=== PATIENT | female | born 1955 | race Caucasian/White ===

== ENCOUNTER 2023-10-12 19:43 | Emergency (ER) | payer MEDICARE, OTHER, SELFPAY ==
[2023-10-12 20:13] VITALS: BP 199/96; PULSE 50; RESP 16; TEMP 36.4; O2SAT 96; BMI 39.5
--- NOTE | 2023-10-12 20:26 | CRLHL7_ITS ---
For Patients: As a result of the Century Cures Act, medical imaging exams and procedure reports are released immediately into your electronic medical record. You may view this report before your referring provider. If you have questions, please contact your health care provider. INDICATION: Fall, syncope. TECHNIQUE: Noncontrast CT cervical spine. FINDINGS: No acute cervical spine fracture or dislocation. Moderate lower cervical spondylosis. No high-grade canal stenosis. Scattered foraminal narrowing. Right C2 and C3 facets are fused. Paravertebral soft tissues are unremarkable. IMPRESSION: No acute cervical spine findings. Please note that all CT scans at this facility use dose modulation, iterative reconstruction, and/or weight-based dosing when appropriate to reduce radiation dose to as low as reasonably achievable. Dictated by Mal Parada MD @ 10/12/2023 10:18:02 PM (Electronically Signed)
--- NOTE | 2023-10-12 20:26 | CRLHL7_ITS ---
For Patients: As a result of the Century Cures Act, medical imaging exams and procedure reports are released immediately into your electronic medical record. You may view this report before your referring provider. If you have questions, please contact your health care provider. INDICATION: Fall, hit back of head, syncope TECHNIQUE: CT head without contrast. COMPARISON: None. FINDINGS: CSF spaces: Within normal limits for age. Brain parenchyma and extra-axial spaces: The hanson-white differentiation is normal. No sign of mass, hemorrhage, or midline shift. No extra-axial fluid collection. Skull base and calvarium: Large posterior scalp hematoma. Fluid and high density material in the right maxillary sinus is likely due to sinusitis. No fractures are seen. IMPRESSION: No acute intracranial findings. Right maxillary sinus fluid is likely inflammatory, however if there has been a right facial injury would be difficult to exclude a fracture. There is no fracture visible on the study. Please note that all CT scans at this facility use dose modulation, iterative reconstruction, and/or weight-based dosing when appropriate to reduce radiation dose to as low as reasonably achievable. Dictated by Mal Parada MD @ 10/12/2023 9:23:18 PM (Electronically Signed)
--- NOTE | 2023-10-12 20:29 | ED.FALL ---
HPI - Fall General Chief Complaint: Fall/Minor Trauma Stated Complaint: fall Time Seen by Provider: 10/12/23 20:19 History of Present Illness HPI Narrative: Patient is a 67-year-old woman who just flew in from [facility]. She is visiting her family for Thanksgiving. Patient states she has been falling at home and local evaluation has been unremarkable. Tonight after getting off the plane they drove the [place] where the patient stumbled getting out of the car hitting the back of her head. She is able to get up on her own but was brought to the emergency room where after suffering what appears to be an abrasion on the occiput. Patient had no loss of consciousness no palpitations no fevers no chills no night sweats. Patient states she knew feels fine would like to go home. She believes she is up-to-date on her tetanus shot. Her pain is minimal. She has no further neurologic symptoms. EKG upon arrival on my review shows sinus rhythm with PACs no other acute abnormalities. Related Data Home Medications Medication Instructions Recorded Confirmed aspirin 81 mg capsule 81 mg PO DAILY 10/12/23 10/12/23 dulaglutide 3 mg/0.5 mL 3 mg subcut QWEEK 10/12/23 10/12/23 subcutaneous pen injector (Trulicity) empagliflozin 10 mg tablet 10 mg PO DAILY 10/12/23 10/12/23 (Jardiance) insulin glargine 100 unit/mL (3 20 unit subcut DAILY 10/12/23 10/12/23 mL) subcutaneous pen (Lantus Solostar U-100 Insulin) losartan 50 mg tablet (Cozaar) 50 mg PO DAILY 10/12/23 10/12/23 metformin 1,000 mg tablet,extended 1,000 mg PO BID 10/12/23 10/12/23 release 24hr Allergies Allergy/AdvReac Type Severity Reaction Status Date / Time No Known Drug Allergies Allergy Verified 10/12/23 20:13 Review of Systems Status of ROS: Reports: 10 or more systems reviewed and unremarkable except as noted in History and below [facility] Social History Smoking Status: Former smoker What tobacco products do you use: cigarettes Smoking quit date/years: <= 15 years ago How often do you have a drink containing alcohol: monthly or less AUDIT-C Alcohol total score: 1 Non-prescribed substance use: denies use Exam Narrative: Exam Narrative: EXAM GENERAL: Patient appears comfortable and well. EYES: No scleral icterus. ENT: Tympanic membranes and oropharynx normal. THYROID: no thyroid nodules or thyromegaly. LYMPH: No supraclavicular or cervical lymphadenopathy. SKIN: Small abrasion on the occiput to no obvious need for closure. Hemostasis has been achieved. EXT: No dependent lower extremity pedal edema. HEART: Regular rate and rhythm with no murmurs, rubs, or gallops. LUNGS: Clear to auscultation bilaterally with no crackles or wheezes. ABD: Soft, non tender, non distended. PSYCH: Good eye contact, speech is not pressured. Neurologic exam: Cranial nerves 2-12 grossly intact no focal defects. Const: Vital Signs, click to edit/add: Vital Signs - 24 hr 10/12/23 20:13 10/12/23 21:59 Temperature 97.6 F Pulse Rate [Right Pulse Oximeter] 50 L Respiratory Rate 16 Blood Pressure [Ri ght Upper Arm] 199/96 H 178/78 H Pulse Oximetry 96 Oxygen Delivery Me thod Room Air Course Course ED Course: Patient seen examined. CT head neck CBC ETOH basic metabolic panel UA pending. Vital Signs Vital signs: Initial Vital Signs Temperature 97.6 F 10/12/23 20:13 Temperature Source Temporal Artery Scan 10/12/23 20:13 Pulse Rate 50 L 10/12/23 20:13 Pulse Rhythm Regular 10/12/23 20:13 Respiratory Rate 16 10/12/23 20:13 Blood Pressure 199/96 H 10/12/23 20:13 Blood Pressure Mean 130 H 10/12/23 20:13 Blood Pressure Position Sitting 10/12/23 20:13 Pulse Oximetry 96 10/12/23 20:13 Oxygen Delivery Method Room Air 10/12/23 20:13 Vital Signs Temperature 97.6 F 10/12/23 20:13 Pulse Rate 50 L 10/12/23 20:13 Respiratory Rate 16 10/12/23 20:13 Blood Pressure 199/96 H 10/12/23 20:13 Pulse Oximetry 96 10/12/23 20:13 Oxygen Delivery Method Room Air 10/12/23 20:13 Temperature 97.6 F 10/12/23 20:13 Pulse Rate 50 L 10/12/23 20:13 Respiratory Rate 16 10/12/23 20:13 Blood Pressure 178/78 H 10/12/23 21:59 Pulse Oximetry 96 10/12/23 20:13 Oxygen Delivery Method Room Air 10/12/23 20:13 MDM - Fall MDM Narrative Medical decision making narrative: Patient is a 67-year-old woman visiting today. She just flew in from [place] and unfortunately fell on her neighbor's driveway. She suffered an abrasion on her scalp which was easily cleaned and required no further suturing or wound care other than topical antibacterials. She is up-to-date on her tetanus shot. CT of the head and cervical spine are normal. EKG shows normal sinus rhythm. Laboratory study shows mild hyponatremia which certainly could be contributing to her occasional falls she has been experiencing. We will try to have her limit her free water intake well she is visiting and follow-up with her primary physician upon arrival back in [place]. Patient is unable to provide a urine sample. Differential Diagnosis Differential diagnosis: Likely syncope, concussion with loss of consciousness and concussion without loss of consciousness Lab Data Labs: Lab Results 10/12/23 Range/Units 20:47 WBC 14.36 H (4.50-11.00) K/uL RBC 5.34 H (4.00-5.20) m/uL Hgb 12.7 (12.0-16.0) gm/dL Hct 39.9 (33.0-51.0) % MCV 75 L (80-100) fL MCH 24 L (26-34) pg MCHC 32 (32-36) gm/dL RDW Coeff of Maxx 18.4 H (11.5-15.5) % Plt Count 455 H (140-440) K/uL Neut % (Auto) 73.8 H (42.0-72.0) % Lymph % (Auto) 15.4 L (20-44) % Gregg % (Auto) 8.8 (0.0-11.0) % Eos % (Auto) 1.3 (0.0-7.0) % Baso % (Auto) 0.3 (0.0-3.0) % Neut # (Auto) 10.60 H (1.7-7.0) K/uL Lymph # (Auto) 2.20 (0.90-2.90) K/uL Gregg # (Auto) 1.30 H (0.00-0.90) K/UL Eos # (Auto) 0.20 (0.00-0.50) K/uL Baso # (Auto) 0.00 (0.00-0.30) K/uL Abs Immat Gran (auto) 0.10 (0.00-0.30) K/uL Imm/Tot Granulo (auto) 0.4 % Sodium 129 L (135-149) mmol/L Potassium 5.1 (3.6-5.1) mmol/L Chloride 94 L (96-114) mmol/L Carbon Dioxide 24 (20-32) mmol/L Anion Gap 11 (7-15) mEq/L BUN 18 (7-30) mg/dL Creatinine 0.8 (0.5-1.5) mg/dL Estimated Creat Clear 45.85 Estimated GFR 80 ml/min Glucose 118 H (60-115) mg/dL Calcium 10.2 (8.4-10.6) mg/dL Ethyl Alcohol < 0.01 L (0.01-0.03) % Discharge Plan Discharge Prescriptions: No Action metformin 1,000 mg tablet extended release 24 hr 1,000 mg PO BID Jardiance 10 mg tablet 10 mg PO DAILY losartan [Cozaar] 50 mg tablet 50 mg PO DAILY aspirin 81 mg capsule 81 mg PO DAILY insulin glargine [Lantus Solostar U-100 Insulin] 100 unit/mL (3 mL) insulin pen 20 unit subcut DAILY Trulicity 3 mg/0.5 mL pen injector 3 mg subcut QWEEK
--- NOTE | 2023-10-12 20:57 | ED.NURSE ---
Cleaned up the abrasion to back of head. No signs of active bleeding at this time.
[2023-10-12 21:05] LABS: Basophils Percent Auto 0.3 % (0.0-3.0); Eosinophils Percent Auto 1.3 % (0.0-7.0); Hematocrit 39.9 % (33.0-51.0); Hemoglobin* 12.7 gm/dL (12.0-16.0); Immature Granulocytes Pct Auto 0.4 %; Lymphocytes Percent Auto 15.4 % (20-44); Mean Corpuscular HGB Conc 32 gm/dL (32-36); Mean Corpuscular Hemoglobin 24 pg (26-34); Mean Corpuscular Volume 75 fL (80-100); Monocytes Percent Auto 8.8 % (0.0-11.0); Neutrophils Percent Auto 73.8 % (42.0-72.0); Platelet Count* 455 K/uL (140-440); RDW Coefficient of Variation % 18.4 % (11.5-15.5); Red Blood Count 5.34 m/uL (4.00-5.20); White Blood Count* 14.36 K/uL (4.50-11.00)
[2023-10-12 21:17] LABS: Chloride* 94 mmol/L (96-114); Potassium* 5.1 mmol/L (3.6-5.1); Sodium* 129 mmol/L (135-149)
[2023-10-12 21:20] LABS: Anion Gap 11 mEq/L (7-15); Carbon Dioxide* 24 mmol/L (20-32); Creatinine* 0.8 mg/dL (0.5-1.5); Est. Creatinine Clearance* 45.85; Estimated Glomerular Filt Rate 80 ml/min
[2023-10-12 21:21] LABS: Blood Urea Nitrogen* 18 mg/dL (7-30); Calcium* 10.2 mg/dL (8.4-10.6); Glucose* 118 mg/dL (60-115)
[2023-10-12 21:22] LABS: Ethanol* < 0.01 % (0.01-0.03); Slide Review Reflex No
--- NOTE | 2023-10-12 21:56 | ED.NURSE ---
Patient unable to leave urine sample after sitting on toilet. Road test on unit showed gait instability when walking, even with use of a walker. Staff needed to center patient with gait belt and her legs tend to cross in front of each other. Talked to patient about these safety concerns. She stated she could use her friend's walker at the house and would have someone with her when walking. Recommended establishing with a primary as soon as possible and could potentially benefit from PT/OT assessment.
[2023-10-12 21:59] VITALS: BP 178/78
== END 2023-10-12 22:28 | disposition home or self-care (01) ==
PROVIDERS: Emergency Provider Internal Medicine
DX: R55 Syncope and collapse (principal); E87.1 Hypo-osmolality and hyponatremia
CPT/HCPCS: 36415; 70450; 72125; 80048; 81003; 82077; 85025; 93005; 99283; 99284; 99285